=== PATIENT | male | born 1940 | race Caucasian/White ===

== ENCOUNTER 2020-10-10 17:17 | Inpatient (IN) ==
[2020-10-10] MEDS ORDERED: Ipratropium/Albuterol Neb 3 ML IH ONE (17:53)
[2020-10-10 18:48] LABS: ABG Base Excess 2 mEq/L (-2 to 3); ABG HCO3 26 mEq/L (21-27); ABG Oxygen Saturation 88 % (95-98); ABG PCO2 36 mmHg (35-45); ABG PH 7.46 pH Units (7.32-7.45); ABG PO2 51 mmHg (85-104); ABG TCO2 27 mEq/L (20-26)
[2020-10-10 18:51] LABS: Basophils % 0.3 %; Hematocrit 34.9 % (37.5-50.1); Hemoglobin 11.9 g/dL (12.9-16.9); Immature Granulocytes % 8.8 % (0-4); Lymphocytes # 0.3 K/mcL (0.6-4.6); Lymphocytes % 4.2 %; Mean Corpuscular HGB Conc 34.1 g/dL (31.6-35.5); Mean Corpuscular Hemoglobin 29.2 pg (28.0-33.3); Mean Corpuscular Volume 85.5 fL (83.0-100.0); Mean Platelet Volume 10.5 fL (9.4-12.4); Monocytes # 0.4 K/mcL (0.0-1.3); Monocytes % 5.5 %; Neutrophils # 6.4 K/mcL (1.6-8.9); Platelet Count 317 K/mcL (140-400); Red Blood Count 4.08 M/mcL (4.19-5.50); Red Cell Distribution Width 13.5 % (11.5-14.5); Segmented Neutrophils % 81.2 %; White Blood Count 7.8 K/mcL (4.3-11.1)
[2020-10-10 19:16] LABS: Troponin I < 0.03 ng/mL (< 0.04)
[2020-10-10 19:18] LABS: BUN/Creatinine Ratio 25 (6-26); Blood Urea Nitrogen 68 mg/dL (8-23); Carbon Dioxide 25 mEq/L (23-29); Chloride 81 mEq/L (98-107); Glucose 633 mg/dL (70-105); Osmolality,Calculated 301 (280-300); Potassium 4.4 mEq/L (3.5-5.1); Sodium 121 mEq/L (136-145); eGFR For African Americans 27 (> 60); eGFR For Non-African Americans 22 (> 60)
[2020-10-10] MEDS ORDERED: 0.9 % Sodium Chloride 1,000 ML IVC ONE (19:20)
[2020-10-10] MEDS ORDERED: Insulin Regular, Human 100 UNIT/ML SQ ONE (19:21)
[2020-10-10 19:34] LABS: Platelet Estimate Normal (Normal)
[2020-10-10] MEDS ORDERED: Azithromycin 500 MG in 0.9 % Sodium Chloride 250 ML IVPB ONE (20:12)
[2020-10-10] MEDS ORDERED: D5% in Water 1,000 ML IVC PRN (21:50)
[2020-10-10] MEDS ORDERED: *HR* Dextrose 50 % in Water (Vial) 50 ML VIAL IVP PRN (21:50)
[2020-10-10] MEDS ORDERED: Dextrose Gel 15 GM/37.5 ML TUBE PO PRN ×2 (21:50)
[2020-10-10] MEDS ORDERED: Naloxone 0.4 MG/ML INJ IVP PRN (21:50)
[2020-10-10] MEDS: 0.9 % Sodium Chloride 1,000 ML IVC SCH (22:28)
[2020-10-10] MEDS: Azithromycin 500 MG in 0.9 % Sodium Chloride 250 ML IVPB SCH (23:17)
[2020-10-11] MEDS ORDERED: Insulin LISPRO 300 UNITS/3 ML VIAL SQ SCH ×3 (00:11→21:00)
[2020-10-11] MEDS: Ipratropium/Albuterol Neb 3 ML IH SCH ×6 (01:05→20:34)
[2020-10-11] MEDS ORDERED: Melatonin 3 MG TABLET PO ONE (02:50)
[2020-10-11] MEDS: Acetaminophen 325 MG TABLET PO PRN ×2 (04:43→16:24)
[2020-10-11 07:14] LABS: Basophils # 0.1 K/mcL (0.0-0.2); Basophils % 0.9 %; Eosinophils % 0.1 %; Hematocrit 31.8 % (37.5-50.1); Immature Granulocytes % 6.9 % (0-4); Lymphocytes # 0.5 K/mcL (0.6-4.6); Lymphocytes % 6.9 %; Mean Corpuscular HGB Conc 34.6 g/dL (31.6-35.5); Mean Corpuscular Hemoglobin 29.6 pg (28.0-33.3); Mean Corpuscular Volume 85.5 fL (83.0-100.0); Mean Platelet Volume 10.1 fL (9.4-12.4); Monocytes # 0.6 K/mcL (0.0-1.3); Monocytes % 7.2 %; Neutrophils # 6.1 K/mcL (1.6-8.9); Platelet Count 281 K/mcL (140-400); Red Blood Count 3.72 M/mcL (4.19-5.50); Red Cell Distribution Width 13.2 % (11.5-14.5); White Blood Count 7.8 K/mcL (4.3-11.1)
[2020-10-11 07:49] LABS: Calcium 8.5 mg/dL (8.6-10.3); Potassium 3.5 mEq/L (3.5-5.1)
[2020-10-11 08:16] LABS: Anisocytosis 1+ (Not Present); Platelet Estimate Normal (Normal); Toxic Granulation Present (Not Present)
[2020-10-11] MEDS: 0.9 % Sodium Chloride 1,000 ML IVC SCH (08:27)
[2020-10-11] MEDS: cefTRIAXone 1,000 MG in 0.9 % Sodium Chloride Mini Bag 100 ML IVPB SCH (08:29)
[2020-10-11] MEDS ORDERED: NON-FORMULARY MEDICATION 1 EACH EACH (Pantoprazole Sodium [Protonix] 40 MG) PO SCH (09:00)
[2020-10-11] MEDS ORDERED: Linaclotide [Linzess] 145 MCG PO PRN (09:16)
[2020-10-11] MEDS: Isosorbide MONOnitrate (24 HR) 60 MG TAB.ER.24H PO SCH (09:57)
[2020-10-11] MEDS: Aspirin Enteric Coated 81 MG Tablet PO SCH (09:57)
[2020-10-11] MEDS: Sucralfate 1 GM TABLET PO SCH ×3 (09:57→19:37)
[2020-10-11] MEDS: Ranolazine 500 MG TAB.ER.12H PO SCH ×2 (09:57→19:37)
[2020-10-11] MEDS: hydrALAZINE 25 MG TABLET PO SCH ×3 (10:00→19:37)
[2020-10-11] MEDS: Budesonide/Formoterol 160/4.5 1 PUFF INH IH SCH ×2 (10:47→20:41)
[2020-10-11] MEDS: Insulin LISPRO 300 UNITS/3 ML VIAL SQ SCH ×2 (11:50→16:47)
[2020-10-11] MEDS: MethylPREDNISolone 40 MG/ML VIAL IVP SCH ×2 (15:16→22:56)
[2020-10-11] MEDS ORDERED: Furosemide 40 MG/4 ML VIAL IVP ONE (19:07)
[2020-10-11] MEDS: Gabapentin 400 MG CAPSULE PO SCH (19:36)
[2020-10-11] MEDS: *HR* LORazepam 0.5 MG TABLET PO SCH (19:37)
[2020-10-11] MEDS: Azithromycin 500 MG in 0.9 % Sodium Chloride 250 ML IVPB SCH (21:21)
[2020-10-11 21:38] LABS: Adenovirus Not Detected (Not Detect); Bordetella Pertussis Not Detected (Not Detect); Chlamydophila pneumoniae Not Detected (Not Detect); Coronavirus 229E Not Detected (Not Detect); Coronavirus HKU1 Not Detected (Not Detect); Coronavirus NL63 Not Detected (Not Detect); Coronavirus OC43 Not Detected (Not Detect); Human Metapneumovirus Not Detected (Not Detect); Human Rhinovirus/Enterovirus Not Detected (Not Detect); Influenza A Subtype 2009 H1 Not Detected (Not Detect); Influenza B Not Detected (Not Detect); Mycoplasma pneumoniae Not Detected (Not Detect); Parainfluenza Virus 1 Not Detected (Not Detect); Parainfluenza Virus 2 Not Detected (Not Detect); Parainfluenza Virus 3 Not Detected (Not Detect); Parainfluenza Virus 4 Not Detected (Not Detect); Respiratory Syncytial Virus Not Detected (Not Detect)
[2020-10-12] MEDS: Ipratropium/Albuterol Neb 3 ML IH SCH ×6 (00:02→20:27)
[2020-10-12] MEDS: *HR* HYDROcodone/Acet 7.5/325 mg TABLET PO PRN ×2 (02:39→20:47)
[2020-10-12 07:46] LABS: Basophils # 0.1 K/mcL (0.0-0.2); Hematocrit 34.7 % (37.5-50.1); Hemoglobin 11.5 g/dL (12.9-16.9); Immature Granulocytes % 7.4 % (0-4); Lymphocytes # 0.4 K/mcL (0.6-4.6); Lymphocytes % 4.3 %; Mean Corpuscular HGB Conc 33.1 g/dL (31.6-35.5); Mean Corpuscular Hemoglobin 28.8 pg (28.0-33.3); Mean Platelet Volume 10.2 fL (9.4-12.4); Monocytes # 0.5 K/mcL (0.0-1.3); Monocytes % 5.2 %; Neutrophils # 7.5 K/mcL (1.6-8.9); Platelet Count 314 K/mcL (140-400); Red Blood Count 3.99 M/mcL (4.19-5.50); Red Cell Distribution Width 13.2 % (11.5-14.5); Segmented Neutrophils % 82.1 %; White Blood Count 9.2 K/mcL (4.3-11.1)
[2020-10-12] MEDS: MethylPREDNISolone 40 MG/ML VIAL IVP SCH ×2 (08:04→17:11)
[2020-10-12] MEDS: Aspirin Enteric Coated 81 MG Tablet PO SCH (08:07)
[2020-10-12] MEDS: Ranolazine 500 MG TAB.ER.12H PO SCH ×2 (08:07→19:48)
[2020-10-12] MEDS: tiZANidine 4 MG TABLET PO SCH (08:08)
[2020-10-12] MEDS: Isosorbide MONOnitrate (24 HR) 60 MG TAB.ER.24H PO SCH (08:08)
[2020-10-12] MEDS: hydrALAZINE 25 MG TABLET PO SCH ×3 (08:08→19:47)
[2020-10-12] MEDS: Sucralfate 1 GM TABLET PO SCH ×3 (08:08→19:48)
[2020-10-12] MEDS: Insulin LISPRO 300 UNITS/3 ML VIAL SQ SCH ×3 (08:11→17:04)
[2020-10-12] MEDS: cefTRIAXone 1,000 MG in 0.9 % Sodium Chloride Mini Bag 100 ML IVPB SCH (08:14)
[2020-10-12] MEDS: Budesonide/Formoterol 160/4.5 1 PUFF INH IH SCH ×2 (08:17→20:37)
[2020-10-12 08:18] LABS: Anisocytosis 1+ (Not Present)
[2020-10-12 08:19] LABS: Platelet Estimate Normal (Normal); Toxic Granulation Present (Not Present)
[2020-10-12] MEDS ORDERED: cloNIDine HCL 0.1 MG TABLET PO PRN (08:25)
[2020-10-12 08:57] LABS: Calcium 8.8 mg/dL (8.6-10.3); Potassium 4.6 mEq/L (3.5-5.1)
[2020-10-12 09:35] LABS: Estimated Average Glucose 292 mg/dl
[2020-10-12] MEDS ORDERED: Furosemide 40 MG TABLET PO SCH (09:45)
[2020-10-12] MEDS ORDERED: Insulin LISPRO 300 UNITS/3 ML VIAL SQ SCH (09:47)
[2020-10-12] MEDS: Furosemide 40 MG TABLET PO SCH ×3 (12:09→22:09)
[2020-10-12] MEDS: *HR* LORazepam 0.5 MG TABLET PO SCH (19:48)
[2020-10-12] MEDS: Gabapentin 400 MG CAPSULE PO SCH (19:48)
[2020-10-12] MEDS: Azithromycin 500 MG in 0.9 % Sodium Chloride 250 ML IVPB SCH (22:07)
[2020-10-13] MEDS: MethylPREDNISolone 40 MG/ML VIAL IVP SCH (00:08)
[2020-10-13] MEDS: Ipratropium/Albuterol Neb 3 ML IH SCH ×4 (01:15→12:01)
[2020-10-13] MEDS ORDERED: Melatonin 3 MG TABLET PO ONE (02:45)
[2020-10-13] MEDS: *HR* HYDROcodone/Acet 7.5/325 mg TABLET PO PRN (03:43)
[2020-10-13] MEDS ORDERED: *HR* GlipiZIDE XL (24 HR) 10 MG TABLET PO SCH ×2 (08:00→09:00)
[2020-10-13 08:06] LABS: Basophils # 0.1 K/mcL (0.0-0.2); Basophils % 0.7 %; Hematocrit 37.6 % (37.5-50.1); Immature Granulocytes % 5.6 % (0-4); Lymphocytes # 0.5 K/mcL (0.6-4.6); Lymphocytes % 3.4 %; Mean Corpuscular HGB Conc 34.6 g/dL (31.6-35.5); Mean Corpuscular Hemoglobin 29.6 pg (28.0-33.3); Mean Corpuscular Volume 85.6 fL (83.0-100.0); Mean Platelet Volume 10.7 fL (9.4-12.4); Monocytes # 0.7 K/mcL (0.0-1.3); Monocytes % 4.9 %; Neutrophils # 11.4 K/mcL (1.6-8.9); Platelet Count 358 K/mcL (140-400); Red Blood Count 4.39 M/mcL (4.19-5.50); Red Cell Distribution Width 13.2 % (11.5-14.5); Segmented Neutrophils % 85.4 %; White Blood Count 13.3 K/mcL (4.3-11.1)
[2020-10-13] MEDS: cefTRIAXone 1,000 MG in 0.9 % Sodium Chloride Mini Bag 100 ML IVPB SCH (08:08)
[2020-10-13] MEDS: tiZANidine 4 MG TABLET PO SCH (08:09)
[2020-10-13] MEDS: Aspirin Enteric Coated 81 MG Tablet PO SCH (08:09)
[2020-10-13] MEDS: Sucralfate 1 GM TABLET PO SCH (08:10)
[2020-10-13] MEDS: Furosemide 40 MG TABLET PO SCH (08:10)
[2020-10-13] MEDS: Isosorbide MONOnitrate (24 HR) 60 MG TAB.ER.24H PO SCH (08:10)
[2020-10-13] MEDS: hydrALAZINE 25 MG TABLET PO SCH (08:10)
[2020-10-13] MEDS: Ranolazine 500 MG TAB.ER.12H PO SCH (08:10)
[2020-10-13] MEDS: Insulin LISPRO 300 UNITS/3 ML VIAL SQ SCH ×2 (08:12→11:18)
[2020-10-13 08:23] LABS: Calcium 9.5 mg/dL (8.6-10.3); Potassium 4.7 mEq/L (3.5-5.1)
[2020-10-13] MEDS ORDERED: predniSONE 20 MG TABLET PO SCH (09:00)
[2020-10-13 09:41] LABS: Platelet Estimate Normal (Normal)
[2020-10-13] MEDS: Budesonide/Formoterol 160/4.5 1 PUFF INH IH SCH (10:00)
[2020-10-13 11:03] VITALS: BP 127/62
== END 2020-10-13 13:32 | disposition home or self-care (01) | DRG 177 ==
LOC: EMEROOPIK 17:17 → INPPIK 17:17
PROVIDERS: ADMIT Family Medicine; ATTEND Family Medicine

== ENCOUNTER 2021-05-14 12:39 | Inpatient (IN) ==
[2021-05-15] MEDS ORDERED: Levalbuterol 1 PUFF INHALER IH PRN (18:19)
[2021-05-15] MEDS ORDERED: Insulin DETEMIR 100 UNIT/ML per UNIT SUBQ ONE (20:45)
[2021-05-15] MEDS: *HR* HYDROcodone/Acet 7.5/325 mg TABLET PO PRN (21:03)
[2021-05-15] MEDS: Sucralfate 1 GM TABLET PO SCH (21:03)
[2021-05-15] MEDS: Furosemide 40 MG TABLET PO SCH (21:03)
[2021-05-15] MEDS: Ondansetron ODT 4 MG TAB.RAPDIS SL PRN (21:04)
[2021-05-15] MEDS: GlipiZIDE 5 MG TABLET PO SCH (21:04)
[2021-05-15] MEDS: hydrOXYzine pamoate 25 MG CAPSULE PO SCH (21:04)
[2021-05-15] MEDS ORDERED: Bisacodyl 10 MG RECTAL SUPPOSITORY RC PRN (21:26)
[2021-05-15] MEDS: hydrALAZINE 25 MG TABLET PO SCH (23:08)
[2021-05-16] MEDS: Albuterol 2.5 MG/3 ML NEBULIZER IH PRN ×3 (03:23→17:58)
[2021-05-16] MEDS: *HR* HYDROcodone/Acet 7.5/325 mg TABLET PO PRN ×3 (06:05→20:38)
[2021-05-16 07:46] LABS: Hematocrit 27.2 % (37.5-50.1); Hemoglobin 8.1 g/dL (12.9-16.9); Mean Corpuscular HGB Conc 29.8 g/dL (31.6-35.5); Mean Corpuscular Volume 90.7 fL (83.0-100.0); Mean Platelet Volume 9.4 fL (9.4-12.4); Platelet Count 315 K/mcL (140-400); Red Cell Distribution Width 19.9 % (11.5-14.5); White Blood Count 6.5 K/mcL (4.3-11.1)
[2021-05-16 08:05] LABS: Calcium 8.5 mg/dL (8.6-10.3); Potassium 3.7 mEq/L (3.5-5.1)
[2021-05-16] MEDS: GlipiZIDE 5 MG TABLET PO SCH ×2 (08:49→20:37)
[2021-05-16] MEDS: Fenofibrate 54 MG TABLET PO SCH (08:49)
[2021-05-16] MEDS: amLODIPine 5 MG TABLET PO SCH (08:49)
[2021-05-16] MEDS: Gabapentin 300 MG CAPSULE PO SCH (08:49)
[2021-05-16] MEDS: Loratadine/Pseudophed (12 HR) 1 EACH TABLET PO SCH (08:49)
[2021-05-16] MEDS: hydrALAZINE 25 MG TABLET PO SCH ×3 (08:50→23:19)
[2021-05-16] MEDS: Isosorbide MONOnitrate (24 HR) 60 MG TAB.ER.24H PO SCH (08:50)
[2021-05-16] MEDS: Furosemide 40 MG TABLET PO SCH ×2 (08:50→16:23)
[2021-05-16] MEDS: Finasteride 5 MG TABLET PO SCH (08:50)
[2021-05-16] MEDS: Sucralfate 1 GM TABLET PO SCH ×2 (08:50→20:37)
[2021-05-16] MEDS: Aspirin Enteric Coated 81 MG Tablet PO SCH (08:50)
[2021-05-16] MEDS: VILANTEROL TR IH SCH (08:55)
[2021-05-16] MEDS: EPLERENONE 25 MG PO SCH (08:55)
[2021-05-16] MEDS: UMECLIDINIUM BRM IH SCH (08:55)
[2021-05-16] MEDS ORDERED: metOLazone 2.5 MG TABLET PO SCH (09:00)
[2021-05-16] MEDS ORDERED: *HR* SitaGLIPtin 25 MG TABLET PO SCH (09:00)
[2021-05-16] MEDS ORDERED: NON-FORMULARY MEDICATION 1 EACH EACH (Pantoprazole Sodium [Protonix] 40 MG Tablet.Dr) PO SCH (09:00)
[2021-05-16] MEDS: metOLazone 5 MG TABLET PO SCH (09:27)
[2021-05-16] MEDS: *HR* LORazepam 1 MG TABLET PO PRN (20:37)
[2021-05-16] MEDS: hydrOXYzine pamoate 25 MG CAPSULE PO SCH (20:38)
[2021-05-16] MEDS ORDERED: Insulin DETEMIR 100 UNIT/ML X5UNITS SUBQ SCH (21:00)
[2021-05-17] MEDS: Sucralfate 1 GM TABLET PO SCH ×2 (08:54→19:28)
[2021-05-17] MEDS: hydrALAZINE 25 MG TABLET PO SCH ×2 (08:54→16:11)
[2021-05-17] MEDS: Loratadine/Pseudophed (12 HR) 1 EACH TABLET PO SCH (08:54)
[2021-05-17] MEDS: Fenofibrate 54 MG TABLET PO SCH (08:54)
[2021-05-17] MEDS: metOLazone 5 MG TABLET PO SCH (08:54)
[2021-05-17] MEDS: amLODIPine 5 MG TABLET PO SCH (08:54)
[2021-05-17] MEDS: Aspirin Enteric Coated 81 MG Tablet PO SCH (08:55)
[2021-05-17] MEDS: Finasteride 5 MG TABLET PO SCH (08:55)
[2021-05-17] MEDS: Isosorbide MONOnitrate (24 HR) 60 MG TAB.ER.24H PO SCH (08:56)
[2021-05-17] MEDS: Gabapentin 300 MG CAPSULE PO SCH (08:56)
[2021-05-17] MEDS: Furosemide 40 MG TABLET PO SCH ×2 (08:56→16:11)
[2021-05-17] MEDS: EPLERENONE 25 MG PO SCH (08:57)
[2021-05-17] MEDS: VILANTEROL TR IH SCH (08:57)
[2021-05-17] MEDS: UMECLIDINIUM BRM IH SCH (08:57)
[2021-05-17] MEDS: Albuterol 2.5 MG/3 ML NEBULIZER IH PRN ×2 (10:42→19:34)
[2021-05-17] MEDS: *HR* HYDROcodone/Acet 7.5/325 mg TABLET PO PRN ×2 (12:33→19:28)
[2021-05-17] MEDS: hydrOXYzine pamoate 25 MG CAPSULE PO SCH (19:29)
[2021-05-17] MEDS: *HR* LORazepam 1 MG TABLET PO PRN (19:29)
[2021-05-18] MEDS: hydrALAZINE 25 MG TABLET PO SCH ×3 (01:12→17:59)
[2021-05-18] MEDS: *HR* HYDROcodone/Acet 7.5/325 mg TABLET PO PRN ×2 (01:12→23:58)
[2021-05-18] MEDS: QUEtiapine Fumarate 25 MG TABLET PO SCH ×2 (05:34→20:24)
[2021-05-18] MEDS: Isosorbide MONOnitrate (24 HR) 60 MG TAB.ER.24H PO SCH (08:25)
[2021-05-18] MEDS: amLODIPine 5 MG TABLET PO SCH (08:26)
[2021-05-18] MEDS: EPLERENONE 25 MG PO SCH (08:27)
[2021-05-18] MEDS: UMECLIDINIUM BRM IH SCH (08:27)
[2021-05-18] MEDS: VILANTEROL TR IH SCH (08:27)
[2021-05-18 10:16] LABS: Basophils # 0.1 K/mcL (0.0-0.2); Basophils % 0.8 %; Eosinophils # 0.1 K/mcL (0.0-0.6); Hematocrit 28.7 % (37.5-50.1); Hemoglobin 8.6 g/dL (12.9-16.9); Immature Granulocytes % 1.3 % (0-4); Lymphocytes # 0.7 K/mcL (0.6-4.6); Lymphocytes % 11.3 %; Mean Corpuscular Hemoglobin 27.5 pg (28.0-33.3); Mean Corpuscular Volume 91.7 fL (83.0-100.0); Mean Platelet Volume 9.9 fL (9.4-12.4); Monocytes # 0.7 K/mcL (0.0-1.3); Monocytes % 12.5 %; Neutrophils # 4.3 K/mcL (1.6-8.9); Platelet Count 298 K/mcL (140-400); Red Blood Count 3.13 M/mcL (4.19-5.50); Red Cell Distribution Width 20.4 % (11.5-14.5); Segmented Neutrophils % 73.1 %; White Blood Count 5.9 K/mcL (4.3-11.1)
[2021-05-18] MEDS: Sucralfate 1 GM TABLET PO SCH ×2 (10:26→20:24)
[2021-05-18] MEDS: Aspirin Enteric Coated 81 MG Tablet PO SCH (10:26)
[2021-05-18] MEDS: Loratadine/Pseudophed (12 HR) 1 EACH TABLET PO SCH (10:26)
[2021-05-18] MEDS: metOLazone 5 MG TABLET PO SCH (10:26)
[2021-05-18] MEDS: Gabapentin 300 MG CAPSULE PO SCH (10:26)
[2021-05-18] MEDS: Finasteride 5 MG TABLET PO SCH (10:27)
[2021-05-18] MEDS: Fenofibrate 54 MG TABLET PO SCH (10:27)
[2021-05-18] MEDS: Furosemide 40 MG TABLET PO SCH ×2 (10:27→17:59)
[2021-05-18 10:28] LABS: Calcium 8.8 mg/dL (8.6-10.3); Potassium 4.7 mEq/L (3.5-5.1)
[2021-05-18] MEDS: Albuterol 2.5 MG/3 ML NEBULIZER IH PRN ×2 (10:41→18:17)
[2021-05-18] MEDS: hydrOXYzine pamoate 25 MG CAPSULE PO SCH (20:24)
[2021-05-18] MEDS: *HR* LORazepam 1 MG TABLET PO PRN (22:13)
[2021-05-19] MEDS: hydrALAZINE 25 MG TABLET PO SCH ×3 (02:03→17:30)
[2021-05-19] MEDS: Isosorbide MONOnitrate (24 HR) 60 MG TAB.ER.24H PO SCH (09:27)
[2021-05-19] MEDS: Sucralfate 1 GM TABLET PO SCH ×2 (09:31→20:59)
[2021-05-19] MEDS: Loratadine/Pseudophed (12 HR) 1 EACH TABLET PO SCH (09:31)
[2021-05-19] MEDS: Finasteride 5 MG TABLET PO SCH (09:31)
[2021-05-19] MEDS: Aspirin Enteric Coated 81 MG Tablet PO SCH (09:31)
[2021-05-19] MEDS: Fenofibrate 54 MG TABLET PO SCH (09:31)
[2021-05-19] MEDS: Gabapentin 300 MG CAPSULE PO SCH (09:31)
[2021-05-19] MEDS: UMECLIDINIUM BRM IH SCH (09:32)
[2021-05-19] MEDS: EPLERENONE 25 MG PO SCH (09:32)
[2021-05-19] MEDS: Furosemide 40 MG TABLET PO SCH ×2 (09:32→17:30)
[2021-05-19] MEDS: VILANTEROL TR IH SCH (09:32)
[2021-05-19] MEDS: Albuterol 2.5 MG/3 ML NEBULIZER IH PRN (14:24)
[2021-05-19] MEDS: hydrOXYzine pamoate 25 MG CAPSULE PO SCH (20:58)
[2021-05-19] MEDS: QUEtiapine Fumarate 25 MG TABLET PO SCH (20:58)
[2021-05-19] MEDS: *HR* LORazepam 1 MG TABLET PO PRN (23:20)
[2021-05-19] MEDS: Ondansetron ODT 4 MG TAB.RAPDIS SL PRN (23:20)
[2021-05-20] MEDS: hydrALAZINE 25 MG TABLET PO SCH ×3 (02:38→18:18)
[2021-05-20] MEDS: *HR* HYDROcodone/Acet 7.5/325 mg TABLET PO PRN ×2 (06:39→18:20)
[2021-05-20] MEDS: Isosorbide MONOnitrate (24 HR) 60 MG TAB.ER.24H PO SCH (09:29)
[2021-05-20] MEDS: Loratadine/Pseudophed (12 HR) 1 EACH TABLET PO SCH (09:29)
[2021-05-20] MEDS: Gabapentin 300 MG CAPSULE PO SCH (09:29)
[2021-05-20] MEDS: Aspirin Enteric Coated 81 MG Tablet PO SCH (09:29)
[2021-05-20] MEDS: Finasteride 5 MG TABLET PO SCH (09:29)
[2021-05-20] MEDS: Fenofibrate 54 MG TABLET PO SCH (09:29)
[2021-05-20] MEDS: Sucralfate 1 GM TABLET PO SCH ×2 (09:29→21:21)
[2021-05-20] MEDS: Darbepoetin 100 MCG/0.5 ML SYRINGE SQ SCH (09:30)
[2021-05-20] MEDS: EPLERENONE 25 MG PO SCH (09:30)
[2021-05-20] MEDS: Furosemide 40 MG TABLET PO SCH ×2 (09:30→18:17)
[2021-05-20] MEDS: UMECLIDINIUM BRM IH SCH (09:31)
[2021-05-20] MEDS: VILANTEROL TR IH SCH (09:31)
[2021-05-20] MEDS: QUEtiapine Fumarate 25 MG TABLET PO SCH (21:20)
[2021-05-20] MEDS: hydrOXYzine pamoate 25 MG CAPSULE PO SCH (21:20)
[2021-05-20] MEDS: Insulin LISPRO 300 UNITS/3 ML VIAL SUBQ SCH (21:30)
[2021-05-21] MEDS: *HR* LORazepam 1 MG TABLET PO PRN (01:31)
[2021-05-21] MEDS: hydrALAZINE 25 MG TABLET PO SCH ×3 (01:32→17:17)
[2021-05-21] MEDS: Melatonin 3 MG TABLET PO PRN (01:32)
[2021-05-21] MEDS: *HR* HYDROcodone/Acet 7.5/325 mg TABLET PO PRN ×3 (02:38→21:43)
[2021-05-21] MEDS: Insulin LISPRO 300 UNITS/3 ML VIAL SUBQ SCH ×4 (07:34→21:52)
[2021-05-21] MEDS: Aspirin Enteric Coated 81 MG Tablet PO SCH (08:21)
[2021-05-21] MEDS: Gabapentin 300 MG CAPSULE PO SCH (08:21)
[2021-05-21] MEDS: Isosorbide MONOnitrate (24 HR) 60 MG TAB.ER.24H PO SCH (08:22)
[2021-05-21] MEDS: Fenofibrate 54 MG TABLET PO SCH (08:22)
[2021-05-21] MEDS: Sucralfate 1 GM TABLET PO SCH ×2 (08:22→21:44)
[2021-05-21] MEDS: Furosemide 40 MG TABLET PO SCH ×2 (08:22→17:16)
[2021-05-21] MEDS: Finasteride 5 MG TABLET PO SCH (08:22)
[2021-05-21] MEDS: UMECLIDINIUM BRM IH SCH (08:23)
[2021-05-21] MEDS: Loratadine/Pseudophed (12 HR) 1 EACH TABLET PO SCH (08:23)
[2021-05-21] MEDS: EPLERENONE 25 MG PO SCH (08:23)
[2021-05-21] MEDS: VILANTEROL TR IH SCH (08:23)
[2021-05-21] MEDS: Albuterol 2.5 MG/3 ML NEBULIZER IH PRN (08:40)
[2021-05-21] MEDS: Ondansetron ODT 4 MG TAB.RAPDIS SL PRN (14:51)
[2021-05-21] MEDS: hydrOXYzine pamoate 25 MG CAPSULE PO SCH (21:43)
[2021-05-21] MEDS: QUEtiapine Fumarate 25 MG TABLET PO SCH (21:45)
[2021-05-22] MEDS: *HR* LORazepam 1 MG TABLET PO PRN (00:28)
[2021-05-22] MEDS: hydrALAZINE 25 MG TABLET PO SCH ×4 (00:28→23:18)
[2021-05-22] MEDS: Insulin LISPRO 300 UNITS/3 ML VIAL SUBQ SCH ×4 (08:17→21:37)
[2021-05-22 08:20] LABS: Basophils # 0.1 K/mcL (0.0-0.2); Eosinophils # 0.1 K/mcL (0.0-0.6); Eosinophils % 1.8 %; Hematocrit 30.7 % (37.5-50.1); Hemoglobin 9.2 g/dL (12.9-16.9); Immature Granulocytes % 1.8 % (0-4); Lymphocytes # 0.8 K/mcL (0.6-4.6); Lymphocytes % 10.7 %; Mean Corpuscular Hemoglobin 27.9 pg (28.0-33.3); Mean Platelet Volume 10.2 fL (9.4-12.4); Monocytes # 0.9 K/mcL (0.0-1.3); Monocytes % 12.7 %; Neutrophils # 5.3 K/mcL (1.6-8.9); Nucleated Red Blood Cells 0.3 /100 WBC (0); Platelet Count 257 K/mcL (140-400); Red Cell Distribution Width 20.6 % (11.5-14.5); White Blood Count 7.3 K/mcL (4.3-11.1)
[2021-05-22] MEDS: Aspirin Enteric Coated 81 MG Tablet PO SCH (08:31)
[2021-05-22] MEDS: Loratadine/Pseudophed (12 HR) 1 EACH TABLET PO SCH (08:31)
[2021-05-22] MEDS: Isosorbide MONOnitrate (24 HR) 60 MG TAB.ER.24H PO SCH (08:31)
[2021-05-22] MEDS: Furosemide 40 MG TABLET PO SCH ×2 (08:31→17:40)
[2021-05-22] MEDS: Sucralfate 1 GM TABLET PO SCH ×2 (08:31→21:34)
[2021-05-22] MEDS: UMECLIDINIUM BRM IH SCH (08:32)
[2021-05-22] MEDS: EPLERENONE 25 MG PO SCH (08:32)
[2021-05-22] MEDS: Gabapentin 300 MG CAPSULE PO SCH (08:32)
[2021-05-22] MEDS: VILANTEROL TR IH SCH (08:32)
[2021-05-22] MEDS: Finasteride 5 MG TABLET PO SCH (08:33)
[2021-05-22] MEDS: Fenofibrate 54 MG TABLET PO SCH (08:33)
[2021-05-22 08:34] LABS: Calcium 8.8 mg/dL (8.6-10.3); Potassium 4.5 mEq/L (3.5-5.1)
[2021-05-22] MEDS: hydrOXYzine pamoate 25 MG CAPSULE PO SCH (21:34)
[2021-05-22] MEDS: QUEtiapine Fumarate 25 MG TABLET PO SCH (21:34)
[2021-05-22] MEDS: Melatonin 3 MG TABLET PO PRN (21:35)
[2021-05-22] MEDS: *HR* HYDROcodone/Acet 7.5/325 mg TABLET PO PRN (23:18)
[2021-05-23] MEDS ORDERED: Haloperidol Lactate 5 MG/ML VIAL IM ONE (03:27)
[2021-05-23] MEDS: UMECLIDINIUM BRM IH SCH (10:15)
[2021-05-23] MEDS: VILANTEROL TR IH SCH (10:15)
[2021-05-23] MEDS: Loratadine/Pseudophed (12 HR) 1 EACH TABLET PO SCH (10:31)
[2021-05-23] MEDS: Furosemide 40 MG TABLET PO SCH ×2 (10:31→16:37)
[2021-05-23] MEDS: Gabapentin 300 MG CAPSULE PO SCH (10:32)
[2021-05-23] MEDS: Sucralfate 1 GM TABLET PO SCH ×2 (10:32→20:48)
[2021-05-23] MEDS: Fenofibrate 54 MG TABLET PO SCH (10:32)
[2021-05-23] MEDS: Insulin LISPRO 300 UNITS/3 ML VIAL SUBQ SCH ×4 (10:33→20:39)
[2021-05-23] MEDS: Isosorbide MONOnitrate (24 HR) 60 MG TAB.ER.24H PO SCH (10:33)
[2021-05-23] MEDS: hydrALAZINE 25 MG TABLET PO SCH ×3 (10:33→23:24)
[2021-05-23] MEDS: Finasteride 5 MG TABLET PO SCH (10:33)
[2021-05-23] MEDS: Aspirin Enteric Coated 81 MG Tablet PO SCH (10:33)
[2021-05-23] MEDS: EPLERENONE 25 MG PO SCH (10:34)
[2021-05-23] MEDS: *HR* HYDROcodone/Acet 7.5/325 mg TABLET PO PRN (10:49)
[2021-05-23] MEDS: QUEtiapine Fumarate 25 MG TABLET PO SCH (20:47)
[2021-05-23] MEDS: hydrOXYzine pamoate 25 MG CAPSULE PO SCH (20:48)
[2021-05-23] MEDS: Melatonin 3 MG TABLET PO PRN (20:48)
[2021-05-23] MEDS: Albuterol 2.5 MG/3 ML NEBULIZER IH PRN (23:55)
[2021-05-24] MEDS: *HR* HYDROcodone/Acet 7.5/325 mg TABLET PO PRN ×3 (00:41→17:29)
[2021-05-24] MEDS: *HR* LORazepam 1 MG TABLET PO PRN ×2 (02:34→21:34)
[2021-05-24] MEDS: VILANTEROL TR IH SCH (08:18)
[2021-05-24] MEDS: UMECLIDINIUM BRM IH SCH (08:18)
[2021-05-24] MEDS: Fenofibrate 54 MG TABLET PO SCH (08:34)
[2021-05-24] MEDS: Sucralfate 1 GM TABLET PO SCH ×2 (08:34→20:18)
[2021-05-24] MEDS: Finasteride 5 MG TABLET PO SCH (08:34)
[2021-05-24] MEDS: Furosemide 40 MG TABLET PO SCH ×2 (08:34→16:44)
[2021-05-24] MEDS: Gabapentin 300 MG CAPSULE PO SCH (08:34)
[2021-05-24] MEDS: Isosorbide MONOnitrate (24 HR) 60 MG TAB.ER.24H PO SCH (08:34)
[2021-05-24] MEDS: Aspirin Enteric Coated 81 MG Tablet PO SCH (08:34)
[2021-05-24] MEDS: hydrALAZINE 25 MG TABLET PO SCH ×3 (08:35→23:10)
[2021-05-24] MEDS: Loratadine/Pseudophed (12 HR) 1 EACH TABLET PO SCH (08:35)
[2021-05-24] MEDS: Insulin LISPRO 300 UNITS/3 ML VIAL SUBQ SCH ×4 (08:36→19:58)
[2021-05-24] MEDS: EPLERENONE 25 MG PO SCH (08:43)
[2021-05-24] MEDS: Albuterol 2.5 MG/3 ML NEBULIZER IH PRN (10:22)
[2021-05-24] MEDS ORDERED: Furosemide 20 MG/2 ML VIAL IVP ONE (12:14)
[2021-05-24] MEDS: QUEtiapine Fumarate 25 MG TABLET PO SCH (20:18)
[2021-05-24] MEDS: Melatonin 3 MG TABLET PO PRN (20:18)
[2021-05-24] MEDS: hydrOXYzine pamoate 25 MG CAPSULE PO SCH (20:18)
[2021-05-25] MEDS: Insulin LISPRO 300 UNITS/3 ML VIAL SUBQ SCH ×4 (07:33→19:57)
[2021-05-25] MEDS: VILANTEROL TR IH SCH (08:47)
[2021-05-25] MEDS: UMECLIDINIUM BRM IH SCH (08:47)
[2021-05-25] MEDS: Aspirin Enteric Coated 81 MG Tablet PO SCH (08:59)
[2021-05-25] MEDS: *HR* HYDROcodone/Acet 7.5/325 mg TABLET PO PRN ×2 (08:59→21:10)
[2021-05-25] MEDS: Gabapentin 300 MG CAPSULE PO SCH (08:59)
[2021-05-25] MEDS: Sucralfate 1 GM TABLET PO SCH ×2 (09:00→21:10)
[2021-05-25] MEDS: Finasteride 5 MG TABLET PO SCH (09:00)
[2021-05-25] MEDS: Furosemide 40 MG TABLET PO SCH ×2 (09:01→17:51)
[2021-05-25] MEDS: Fenofibrate 54 MG TABLET PO SCH (09:01)
[2021-05-25] MEDS: Isosorbide MONOnitrate (24 HR) 60 MG TAB.ER.24H PO SCH (09:01)
[2021-05-25] MEDS: hydrALAZINE 25 MG TABLET PO SCH ×2 (09:01→17:51)
[2021-05-25] MEDS: EPLERENONE 25 MG PO SCH (09:02)
[2021-05-25] MEDS: Loratadine/Pseudophed (12 HR) 1 EACH TABLET PO SCH (09:02)
[2021-05-25] MEDS: Melatonin 3 MG TABLET PO PRN (21:10)
[2021-05-25] MEDS: hydrOXYzine pamoate 25 MG CAPSULE PO SCH (21:10)
[2021-05-25] MEDS: QUEtiapine Fumarate 25 MG TABLET PO SCH (21:10)
[2021-05-26] MEDS: hydrALAZINE 25 MG TABLET PO SCH ×3 (00:55→21:29)
[2021-05-26] MEDS: *HR* LORazepam 1 MG TABLET PO PRN ×2 (04:03→19:02)
[2021-05-26] MEDS: Gabapentin 300 MG CAPSULE PO SCH (09:23)
[2021-05-26] MEDS: Furosemide 40 MG TABLET PO SCH ×2 (09:23→21:28)
[2021-05-26] MEDS: Finasteride 5 MG TABLET PO SCH (09:24)
[2021-05-26] MEDS: Aspirin Enteric Coated 81 MG Tablet PO SCH (09:24)
[2021-05-26] MEDS: Isosorbide MONOnitrate (24 HR) 60 MG TAB.ER.24H PO SCH (09:24)
[2021-05-26] MEDS: Sucralfate 1 GM TABLET PO SCH ×2 (09:24→21:28)
[2021-05-26] MEDS: Fenofibrate 54 MG TABLET PO SCH (09:24)
[2021-05-26] MEDS: Loratadine/Pseudophed (12 HR) 1 EACH TABLET PO SCH (09:25)
[2021-05-26] MEDS: EPLERENONE 25 MG PO SCH (09:25)
[2021-05-26] MEDS: Insulin LISPRO 300 UNITS/3 ML VIAL SUBQ SCH ×4 (09:25→21:35)
[2021-05-26] MEDS: UMECLIDINIUM BRM IH SCH (09:25)
[2021-05-26] MEDS: VILANTEROL TR IH SCH (09:25)
[2021-05-26] MEDS: *HR* HYDROcodone/Acet 7.5/325 mg TABLET PO PRN (09:26)
[2021-05-26] MEDS ORDERED: Acetaminophen 325 MG TABLET PO PRN (11:05)
[2021-05-26] MEDS: Sennosides/Docusate Sodium TABLET PO SCH ×2 (12:21→21:28)
[2021-05-26] MEDS: Nitroglycerin 0.4 MG TAB.SUBL SL PRN ×2 (18:01→18:53)
[2021-05-26 18:31] LABS: Basophils # 0.1 K/mcL (0.0-0.2); Basophils % 0.8 %; Eosinophils % 0.7 %; Hematocrit 31.8 % (37.5-50.1); Hemoglobin 9.5 g/dL (12.9-16.9); Immature Granulocytes % 1.6 % (0-4); Lymphocytes # 0.8 K/mcL (0.6-4.6); Lymphocytes % 13.8 %; Mean Corpuscular HGB Conc 29.9 g/dL (31.6-35.5); Mean Corpuscular Hemoglobin 27.4 pg (28.0-33.3); Mean Corpuscular Volume 91.6 fL (83.0-100.0); Mean Platelet Volume 10.4 fL (9.4-12.4); Monocytes # 0.9 K/mcL (0.0-1.3); Monocytes % 14.2 %; Neutrophils # 4.2 K/mcL (1.6-8.9); Platelet Count 269 K/mcL (140-400); Red Blood Count 3.47 M/mcL (4.19-5.50); Segmented Neutrophils % 68.9 %; White Blood Count 6.1 K/mcL (4.3-11.1)
[2021-05-26 18:47] LABS: Albumin 3.3 g/dL (3.5-5.7); Albumin/Globulin Ratio 1.3 (1.1-2.2); Bilirubin,Total 0.4 mg/dL (0.3-1.0); Calcium 8.4 mg/dL (8.6-10.3); Globulin 2.5 g/dL (2.4-3.5); Magnesium 2.6 mg/dL (1.6-2.6); Potassium 4.1 mEq/L (3.5-5.1); Total Protein 5.8 g/dL (6.4-8.9)
[2021-05-26] MEDS: traZODone 50 MG TABLET PO SCH (21:28)
[2021-05-27] MEDS: hydrALAZINE 25 MG TABLET PO SCH ×3 (00:06→18:21)
[2021-05-27] MEDS: *HR* HYDROcodone/Acet 7.5/325 mg TABLET PO PRN ×2 (11:28→18:21)
[2021-05-27] MEDS: UMECLIDINIUM BRM IH SCH (11:36)
[2021-05-27] MEDS: VILANTEROL TR IH SCH (11:36)
[2021-05-27] MEDS: Insulin LISPRO 300 UNITS/3 ML VIAL SUBQ SCH ×4 (11:41→20:54)
[2021-05-27] MEDS: Darbepoetin 100 MCG/0.5 ML SYRINGE SQ SCH (11:43)
[2021-05-27] MEDS: Furosemide 40 MG TABLET PO SCH ×2 (11:43→18:21)
[2021-05-27] MEDS: Isosorbide MONOnitrate (24 HR) 60 MG TAB.ER.24H PO SCH (11:44)
[2021-05-27] MEDS: Aspirin Enteric Coated 81 MG Tablet PO SCH (11:44)
[2021-05-27] MEDS: Loratadine/Pseudophed (12 HR) 1 EACH TABLET PO SCH (11:44)
[2021-05-27] MEDS: Sucralfate 1 GM TABLET PO SCH ×2 (11:44→20:54)
[2021-05-27] MEDS: Gabapentin 300 MG CAPSULE PO SCH (11:45)
[2021-05-27] MEDS: EPLERENONE 25 MG PO SCH (11:45)
[2021-05-27] MEDS: Fenofibrate 54 MG TABLET PO SCH (11:46)
[2021-05-27] MEDS: Sennosides/Docusate Sodium TABLET PO SCH ×2 (11:46→20:54)
[2021-05-27] MEDS: Finasteride 5 MG TABLET PO SCH (11:46)
[2021-05-27] MEDS: traZODone 50 MG TABLET PO SCH (20:54)
[2021-05-27] MEDS: *HR* LORazepam 1 MG TABLET PO PRN (20:58)
[2021-05-28] MEDS: hydrALAZINE 25 MG TABLET PO SCH ×5 (00:26→16:15)
[2021-05-28] MEDS: *HR* HYDROcodone/Acet 7.5/325 mg TABLET PO PRN ×4 (00:26→14:30)
[2021-05-28] MEDS ORDERED: *HR* LORazepam 2 MG/ML VIAL IVP ONE (02:27)
[2021-05-28] MEDS: VILANTEROL TR IH SCH (07:45)
[2021-05-28] MEDS: UMECLIDINIUM BRM IH SCH (07:45)
[2021-05-28] MEDS: Insulin LISPRO 300 UNITS/3 ML VIAL SUBQ SCH ×3 (10:28→17:35)
[2021-05-28] MEDS: Furosemide 40 MG TABLET PO SCH ×2 (10:37→17:42)
[2021-05-28] MEDS: Sennosides/Docusate Sodium TABLET PO SCH (10:37)
[2021-05-28] MEDS: Loratadine/Pseudophed (12 HR) 1 EACH TABLET PO SCH (10:38)
[2021-05-28] MEDS: Fenofibrate 54 MG TABLET PO SCH (10:38)
[2021-05-28] MEDS: Isosorbide MONOnitrate (24 HR) 60 MG TAB.ER.24H PO SCH (10:38)
[2021-05-28] MEDS: Aspirin Enteric Coated 81 MG Tablet PO SCH (10:38)
[2021-05-28] MEDS: Sucralfate 1 GM TABLET PO SCH (10:39)
[2021-05-28] MEDS: Gabapentin 300 MG CAPSULE PO SCH (10:39)
[2021-05-28] MEDS: Finasteride 5 MG TABLET PO SCH (10:39)
[2021-05-28] MEDS: EPLERENONE 25 MG PO SCH (10:40)
[2021-05-28 11:55] LABS: Basophils # 0.1 K/mcL (0.0-0.2); Basophils % 0.7 %; Eosinophils % 0.4 %; Hematocrit 33.9 % (37.5-50.1); Hemoglobin 10.1 g/dL (12.9-16.9); Immature Granulocytes % 2.4 % (0-4); Lymphocytes % 13.6 %; Mean Corpuscular HGB Conc 29.8 g/dL (31.6-35.5); Mean Corpuscular Hemoglobin 27.3 pg (28.0-33.3); Mean Corpuscular Volume 91.6 fL (83.0-100.0); Mean Platelet Volume 10.1 fL (9.4-12.4); Monocytes % 13.6 %; Neutrophils # 5.1 K/mcL (1.6-8.9); Nucleated Red Blood Cells 0.7 /100 WBC (0); Platelet Count 258 K/mcL (140-400); Red Cell Distribution Width 19.9 % (11.5-14.5); Segmented Neutrophils % 69.3 %; White Blood Count 7.4 K/mcL (4.3-11.1)
[2021-05-28 12:23] LABS: Albumin 3.4 g/dL (3.5-5.7); Albumin/Globulin Ratio 1.3 (1.1-2.2); Bilirubin,Total 0.5 mg/dL (0.3-1.0); Calcium 8.6 mg/dL (8.6-10.3); Globulin 2.6 g/dL (2.4-3.5); Potassium 4.4 mEq/L (3.5-5.1)
[2021-05-28] MEDS: *HR* LORazepam 1 MG TABLET PO PRN (14:31)
[2021-05-28] MEDS ORDERED: Morphine Sulfate 2 MG/ML SYRINGE IVP ONE (15:53)
[2021-05-28 16:07] VITALS: BP 134/68
== END 2021-05-28 18:16 | disposition short-term general hospital (02) | DRG 945 ==
LOC: INPPIK 05-15 19:56
PROVIDERS: ADMIT Family Medicine; ATTEND Family Medicine